=== PATIENT | female | born 1995 | race Caucasian/White ===

== ENCOUNTER 2022-05-19 11:55 | Emergency (ER) | payer MEDICAID, OTHER ==
[~2022-05-19] VITALS: Ht 152.4 cm; Wt 59.0 kg
--- NOTE | 2022-05-19 12:11 | NUR ---
Female central office trouble shooter accompanied female patient for abscess evaluation.
--- NOTE | 2022-05-19 12:11 | NUR ---
at bedside for evaluation.
--- NOTE | 2022-05-19 12:21 | NUR ---
Female salt machine operator accompanied female patient for ultrasound of abscess.
[2022-05-19] MEDS ORDERED: AMOX-430 PO (12:30)
[2022-05-19 12:35] VITALS: BP 110/68
--- NOTE | 2022-05-19 12:36 | NUR ---
Patient discharged to home in stable condition. Written and verbal after care instructions given. Patient verbalizes understanding of instructions. Stressed follow up or return to ER for worsening s/s.
== END 2022-05-19 12:37 | disposition home or self-care (01) ==
LOC: ER 12:01
DX: K61.0 Anal abscess (principal)
CPT/HCPCS: A4663